=== PATIENT | female | born 1950 | race Caucasian/White ===

== ENCOUNTER 2016-11-28 19:23 | Emergency (ER) | payer MEDICARE, OTHER ==
--- NOTE | 2016-11-28 20:29 | ED Physician Documentation ---
PD HPI URI - Stated complaint Stated Complaint: SINUS INFECTION - Chief complaint Chief Complaint: General - History obtained from History obtained from: Patient - History of Present Illness Timing - onset: How many days ago (5) Timing duration: Days (5) Timing details: Gradual onset Pain level max: 6 Pain level now: 6 Associated symptoms: Fever (subjective), Chills, Sweats, Nasal congestion, Sinus pain, Sore throat, Swollen nodes, Dry cough. No: Hemoptysis, Dyspnea, NVD Contributing factors: Travel (visiting from [place]) Improves by: Nothing, Other (took aleve) Worsened by: Other (leaning over) Similar symptoms before: Diagnosis (states has had a sinus infection in the past that "turned into pneumonia" that "lingered for 3 months") Review of Systems Constitutional: reports: Fatigue, Sweats Ears: reports: Ear pain (B) Cardiac: denies: Chest pain / pressure : denies: Dysuria Skin: denies: Rash Neurologic: denies: Focal weakness, Numbness, Headache PD PAST MEDICAL HISTORY - Past Medical History Past Medical History: Yes Endocrine/Autoimmune: HyPOthyroidism - Past Surgical History Past Surgical History: Yes /[employer]: Hysterectomy - Present Medications Home Medications: Ambulatory Orders Medication Instructions Recorded Confirmed Cetirizine HCl/Pseudoephedrine 1 each PO BID PRN #30 tab.er.12h 11/28/16 [Zyrtec-D Tablet] Doxycycline Hyclate 100 mg PO BID #20 capsule 11/28/16 Mometasone Furoate [Nasonex] 2 spray NS DAILY PRN #1 spray.pump 11/28/16 - Allergies Allergies/Adverse Reactions: Allergies Allergy/AdvReac Type Severity Reaction Status Date / Time amoxicillin trihydrate * AdvReac Nausea Verified 11/28/16 19:34 [From Augmentin] potassium clavulanate * AdvReac Nausea Verified 11/28/16 19:34 [From Augmentin] MYCINS AdvReac Cramps Uncoded 11/28/16 19:34 - Living Situation Living Situation: reports: With family Living Arrangement: reports: At home - Family History Family history: reports: Non contributory PD ED PE NORMAL - Vitals Vital signs reviewed: Yes - General General: Alert and oriented X 3, No acute distress - HEENT HEENT: Ears normal, Moist mucous membranes, Pharynx benign, Other (TTP over the frontal and maxillary sinuses) - Neck Neck: Supple, no meningeal sign, Other (shotty anterior LAD) - Cardiac Cardiac: RRR, Strong equal pulses - Respiratory Respiratory: No respiratory distress, Other (rhonchi RML. did not clear with cough.) - Abdomen Abdomen: Soft, Non tender - Derm Derm: Warm and dry - Neuro Neuro: Alert and oriented X 3 - Psych Psych: Normal mood, Normal affect Results - Vitals Vitals: Vital Signs - 24 hr 11/28/16 11/28/16 19:30 21:45 Temperature 37.4 C Heart Rate 85 81 Respiratory 17 20 Rate Blood Pressure 156/78 H 143/72 H O2 Saturation 98 100 Oxygen O2 Source Room air - Rads (name of study) cxr Radiology: Prelim report reviewed, EMP read contemporaneously, See rad report ( No definable acute consolidation. Question mild COPD. ) PD MEDICAL DECISION MAKING - ED course Complexity details: reviewed results, re-evaluated patient, considered differential, d/w patient ED course: Patient is a 58-year-old female presents to the emergency department with what appears to be a viral upper respiratory infection. No acute findings on chest x -ray. I am concerned that she continues to have rhonchi in the right middle lobe that does not clear with coughing. Concern for possible pneumonia. We will trial her on supportive care for the next 24-48 hours and if she fails to improve, we will start her on antibiotics at that time. She is very well- appearing, nontoxic. Afebrile here. No hypoxia. No respiratory distress. Counseled regarding the potential side effects of antibiotic use. Patient is comfortable with this plan. Patient counseled regarding signs and symptoms for which I believe and urgent re-evaluation would be necessary. Patient with good understanding of and agreement to plan and is comfortable going home at this time This document was made in part using voice recognition software. While efforts are made to proofread this document, sound alike and grammatical errors may occur. Departure - Departure Disposition: 01 Home, Self Care Clinical Impression: Sinusitis Qualifiers: Sinusitis location: pansinusitis Chronicity: acute Recurrence: non-recurrent Qualified Code(s): J01.40 - Acute pansinusitis, unspecified Condition: Good Instructions: ED Sinusitis No Abx, ED Sinusitis Abx Tx Follow-Up: your,doctor in 1 week [Other] Prescriptions: Doxycycline Hyclate 100 mg PO BID #20 capsule Mometasone Furoate [Nasonex] 2 spray NS DAILY PRN #1 spray.pump PRN Reason: Nasal Congestion Cetirizine HCl/Pseudoephedrine [Zyrtec-D Tablet] 1 each PO BID PRN #30 tab.er.12h PRN Reason: Nasal Congestion Comments: Weight for 1-2 days before starting the antibiotics to see if you improve without them, as we discussed there can be serious side effects from antibiotics. Return if you worsen. Discharge Date/Time: 11/28/16 21:46
[2016-11-28] MEDS ORDERED: OXYMETAZOLINE NASAL SPRAY NAS STA (20:43)
[2016-11-28] MEDS ORDERED: DEXAMETHASONE 10 MG/ML VIAL PO STA (20:43)
[2016-11-28] MEDS ORDERED: PSEUDOEPHEDRINE 30 MG TABLET PO STA (20:43)
[2016-11-28] MEDS ORDERED: PSEUDOEPHEDRINE 30 MG TABLET PO ONE (20:44)
[2016-11-28] MEDS ORDERED: DEXAMETHASONE 10 MG/ML VIAL ONE (20:44)
[2016-11-28] MEDS ORDERED: OXYMETAZOLINE NASAL SPRAY NAS ONE (20:44)
--- NOTE | 2016-11-28 21:26 | XRAY Preliminary Report ---
Exam: XR Chest 2 View PA/LAT IMPRESSION: 1. No definable acute consolidation. 2. Question mild COPD. [facility] SITE ID: [id number]
--- NOTE | 2016-11-28 21:29 | XRAY Report ---
EXAM: CHEST RADIOGRAPHY EXAM DATE: 11/28/2016 08:45 PM. CLINICAL HISTORY: Cough and chills for one week. COMPARISON: None. TECHNIQUE: 2 views. FINDINGS: Lungs/Pleura: No definable consolidation, effusions or edema. Possible hyperlucency present in the up per lobes. Mediastinum: Heart and mediastinal contours are unremarkable. Other: None. IMPRESSION: 1. No definable acute consolidation. 2. Question mild COPD. [facility] Referring Provider Line: [phone] SITE ID: [id number]
[2016-11-28 21:46] VITALS: BP 143/72
== END 2016-11-28 21:46 | disposition home or self-care (01) ==
LOC: ED 19:23
DX: J01.40 Acute pansinusitis, unspecified (principal); R06.89 Other abnormalities of breathing
CPT/HCPCS: 71020; 99283; 99284; A9270